=== PATIENT | female | born 2005 | race Caucasian/White ===

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

== ENCOUNTER 2024-06-07 15:29 | Outpatient (CLI) | payer OTHER, SELFPAY ==
[2024-06-07 15:58] LABS: Hematocrit 42.3 % (37.0-47.0); Mean Corpuscular HGB Conc 33.2 g/dL (31.8-35.4); Mean Corpuscular Hemoglobin 28.4 pg (27.0-31.2); Mean Corpuscular Volume 85.7 fl (81-99); Platelet Count 303 K/mm3 (142-424); Red Blood Count 4.93 M/mm3 (4.20-5.40); Red Cell Distribution Width 13.8 % (11.5-17.5); White Blood Count 9.1 K/mm3 (4.5-13.0)
[2024-06-07 16:19] LABS: Alanine Aminotransferase 17 U/L (12-78); Albumin Level 4.7 g/dl (3.5-5.0); Albumin/Globulin Ratio 1.8 (1.1-1.8); Alkaline Phosphatase 58 U/L (38-126); Anion Gap 10.7 mEq/L (5-15); Aspartate Amino Transferase 22 U/L (14-36); Bilirubin,Total 0.5 mg/dl (0.2-1.3); Blood Urea Nitrogen 13 mg/dl (7-17); Calcium 9.7 mg/dl (8.4-10.2); Carbon Dioxide 27 mmol/L (22.0-30.0); Chloride 104 mmol/L (98-107); Estimated Glomerular Filt Rate 80 ml/min (>60); GFR (African American) 97 ML/MIN (>60); Globulin 2.6 g/dL (1.3-3.2); Glucose 134 mg/dl (74-100); Potassium 3.7 mmoL/L (3.5-5.1); Sodium 138 mmol/L (136-145); Total Protein,Serum 7.3 g/dl (6.3-8.2)
[2024-06-07 16:33] LABS: 25-OH Vitamin D, Total 41.5 ng/mL (30-100); Free T4 (Free Thyroxine) 1.12 ng/dl (0.78-2.19)
[2024-06-07 17:10] LABS: Vitamin B12 598 pg/mL (239-931)
== END 2024-06-07 23:59 | disposition home or self-care (01) ==
LOC: LAB 15:35
PROVIDERS: PCP Emergency Medicine; Visit Provider Nurse Practitioner Family
DX: F32.1 Major depressive disorder, single episode, moderate (principal); F41.9 Anxiety disorder, unspecified; R45.86 Emotional lability
CPT/HCPCS: 36415; 80053; 82306; 82607; 84439; 84443; 85014; 85018; 85048; 85049

== ENCOUNTER 2024-06-28 17:16 | Outpatient (CLI) | payer OTHER, SELFPAY ==
[2024-06-28 22:24] LABS: Hemoglobin A1C 4.9 % (4.0-6.0)
== END 2024-06-28 23:59 | disposition home or self-care (01) ==
LOC: LAB 17:18
PROVIDERS: PCP Emergency Medicine; Visit Provider Nurse Practitioner Family
DX: R73.09 Other abnormal glucose (principal)
CPT/HCPCS: 36415; 83036